=== PATIENT | female | born 1990 | race Hispanic/Latino ===

== ENCOUNTER 2019-07-20 00:43 | Inpatient (IN) ==
--- NOTE | 2019-07-20 00:25 | PROVIDER DOCUMENTATION ---
This chart was entered by Noreen Restrepo Scribe, acting as scribe for Miguel Nieto MD. HPI-Female /OB/Breast - General Stated Complaint: OB RELATED Time Seen by Provider: 07/20/19 00:12 Source: reports: RN/MD Unable to obtain history due to:: other (language barrier, prize coordinator not answering) - History of Present Illness-Female /OB Nature of Presenting Problem: 28 yohf c/o abd pain starting tonight. pt is 30+ weeks . unsure of care. prize coordinator contacted but no answer, unable to get hpi or ros aside from abd pain. Does patient report she is ?: Yes Location of complaint: reports: other (abd pain) Radiation: reports: none Severity in ED: reports: moderate Onset/Duration: reports: this evening Timing: reports: still present Context/Activities at Onset: reports: none Vaginal Symptoms: reports: no symptoms Vaginal Bleeding Amount: None Urinary Symptoms: reports: no symptoms Related Symptoms: reports: abdominal pain Leakage of Fluid: none Modifying Factors: improves with: nothing Associated Symptoms: reports: denies symptoms Review of Systems - Adult - REVIEW OF SYSTEMS - ADULT Constitutional: reports: no symptoms reported. denies: fever, fatique, night sweats Eyes: reports: no symptoms reported Ears, Nose, Mouth & Throat: reports: no symptoms reported Cardiovascular: reports: no symptoms reported Respiratory: reports: no symptoms reported Gastrointestinal: reports: see HPI, abdominal pain. denies: diarrhea, nausea, vomiting Genitourinary: reports: no symptoms reported Musculoskeletal: reports: no symptoms reported Integumentary: reports: no symptoms reported Neurological: reports: no symptoms reported Psychiatric: reports: no symptoms reported Endocrine: reports: no symptoms reported Hematologic/Lymphatic: reports: no symptoms reported Allergic/Immunologic: reports: no symptoms reported All Other Systems: Reviewed and Negative Past History - Adult - PAST MEDICAL HISTORY-ADULT Review of Records: reports: Nursing Assessment Review, Medications Reviewed, Social history reviewed & non-contributory. Major Childhood Illnesses: reports: denies history Cardiovascular: reports: denies history Respiratory: reports: denies history Gastrointestinal: reports: denies history Obstetrical/Gynecological: reports: denies history Genitourinary: reports: denies history Musculoskeletal: reports: denies history Neurological: reports: denies history Endocrine/Immune: reports: denies history Other Conditions: reports: denies history - IMMUNIZATION STATUS Childhood Immunizations: See Nurse Assessment Flu Vaccine: See Nurse Assessment - FAMILY HISTORY Family History: reviewed, not pertinent Physical Exam-General - PHYSICAL EXAM-ADULT Initial Vital Signs Reviewed: Yes - CONSTITUTIONAL General Appearance: alert, no apparent distress - EYES Eyes: PERRL/EOMI - HEAD, EARS, NOSE, MOUTH & THROAT HENMT: normocephalic/atraumatic, moist mucous membranes - NECK Neck: non-tender, full range of motion, supple, normal inspection - RESPIRATORY Respiratory: chest non-tender, lungs clear, normal breath sounds - CARDIOVASCULAR Cardiovascular: normal peripheral pulses, regular rate, rhythm - GASTROINTESTINAL (ABDOMEN) Abdominal Exam: normal bowel sounds, non tender, soft, no organomegaly, no pulsatile mass, tenderness. negative: guarding, rigid, rebound - MUSCULOSKELETAL Back Exam: normal inspection Extremity: normal range of motion, non-tender, normal inspection - SKIN Integumentary: normal color, normal turgor, warm/dry - NEUROLOGIC Neurologic: grossly normal, no motor/sensory deficits - PSYCHIATRIC Psych/Mental Status: normal mood/affect, normal thought content, normal thought process, oriented x 3 Progress - PLAN OF CARE/RESULTS Progress/Plan/Lab Results: Vital Signs - 8 hr 07/20/19 00:10 Temperature 97.9 F Pulse Rate 76 Respiratory Rate 20 Blood Pressure 138/79 O2 Sat by Pulse Oximetry 98 - XRAY 1 XRAY Study: Chest Impression: Normal - CONSULTS/PCP/HOSPITALIST Notification #1 *Consult/PCP/Hospitalist*: Kemar Time Discussed: 00:21 Consult Disposition: Admit Departure - Departure Date of Disposition Decision: 07/20/19 Time of Disposition Decision: 00:22 DIAGNOSIS: Active labor Qualifiers: Weeks of gestation: unspecified Qualified Code(s): Z34.90 - Encounter for supervision of normal , unspecified, unspecified trimester Disposition: ADMITTED INPATIENT 09 Certified Medical Emergency: Emergent Condition: Stable Referrals and Follow-Ups: None,PCP [Primary Care Provider] - - Critical Care Note This patient required my direct & personal management of CC.: No Attestation - Physician/ JERRELL Attestation Patient care was provided by Advanced Practice Provider:: No The physician spent face to face time with patient:: Yes Advanced Practice Provider documentation review:: Supervising physician onsite and consulted in the evaluation and care of this patient. The physician did have a face to face encounter with the patient. This chart was documented by the indicated scribe, (Noreen Restrepo Scribe) and accurately reflects the services I performed and decisions made by me, Miguel Nieto MD, as attested by the provider's signature.
[2019-07-20] MEDS ORDERED: REGLAN PO PRN (01:14)
[2019-07-20] MEDS ORDERED: AMPICILLIN 2 GM in NS 100 ML IV ONE (01:14)
[2019-07-20] MEDS ORDERED: TYLENOL PO PRN (01:14)
[2019-07-20] MEDS ORDERED: KEFZOL 2 GM/D5W 2 GM/50 ML IVPB IV PRN ×3 (01:14→11:00)
[2019-07-20] MEDS ORDERED: ZOFRAN IV PRN (01:14)
[2019-07-20] MEDS ORDERED: PEPCID IV PRN (01:14)
[2019-07-20] MEDS ORDERED: PEPCID PO PRN ×2 (01:14)
[2019-07-20] MEDS ORDERED: PITOCIN 30 UNITS/NS 30 UNIT/500 ML IV.SOLN IV SCH ×2 (01:15→12:00)
[2019-07-20] MEDS ORDERED: SODIUM CHLORIDE 0.9% INJ SCH (01:15)
[2019-07-20] MEDS: LR 1,000 ML IV SCH ×2 (01:30→10:13)
[2019-07-20 01:37] LABS: URINE SOURCE VOIDED
[2019-07-20] MEDS ORDERED: MINERAL OIL TOP PRN (01:37)
[2019-07-20] MEDS ORDERED: XYLOCAINE-MPF 1% INJ PRN ×2 (01:37→11:57)
[2019-07-20 01:46] LABS: BASO# 0.03 X1000 (0.0-0.2); BASO% 0.4 % (0.0-0.8); EOS# 0.07 X1000 (0.0-0.7); EOS% 0.9 % (0.0-10.0); HEMATOCRIT 42.4 % (37.0-47.0); HEMOGLOBIN 14.2 g/dL (12.0-16.0); IMM GRAN# 0.08 X1000 (0.0-0.04); IMM GRAN% 1.1 % (0.0-0.5); LYMPH# 1.76 X1000 (1.2-3.4); LYMPH% 23.3 % (20.5-51.1); MCH 30.7 PG (27-31); MCHC 33.5 g/dL (33-37); MCV 91.8 FL (81-99); MONO# 0.66 X1000 (0.11-0.59); MONO% 8.7 % (1.7-9.3); MPV 12.2 FL (7.4-10.4); NEUT# 4.95 X1000 (1.4-6.5); NEUT% 65.6 % (42.2-75.2); PLT 181 X1000 (130-400); RBC 4.62 XMIL (4.2-5.4); RDW 14.5 % (11.5-14.5); WBC 7.55 X1000 (4.8-10.8)
[2019-07-20 01:48] LABS: BILIRUBIN URINE NEGATIVE (NEGATIVE); BLOOD URINE SMALL (NEGATIVE); COLOR STRAW; GLUCOSE URINE NEGATIVE (NEGATIVE); KETONE URINE NEGATIVE (NEGATIVE); LEUKOCYTES URINE MODERATE (NEGATIVE); NITRITE URINE NEGATIVE (NEGATIVE); PROTEIN URINE NEGATIVE (NEGATIVE); SP GRAVITY URINE 1.006; TURBIDITY URINE CLEAR (CLEAR); UROBILINOGEN URINE NORMAL (NORMAL)
[2019-07-20 02:01] LABS: UR AMPHETAMINES QUAL NONE DETECTED (NONE DETECT); UR BARBITUATES QUAL NONE DETECTED (NONE DETECT); UR BENZODIAZEPIN QUAL NONE DETECTED (NONE DETECT); UR CANNABINOIDS QUAL NONE DETECTED (NONE DETECT); UR COCAINE QUAL NONE DETECTED (NONE DETECT); UR METHADONE QUAL NONE DETECTED (NONE DETECT); UR OPIATES QUAL NONE DETECTED (NONE DETECT); UR OXYCODONE QUAL NONE DETECTED (NONE DETECT); UR PCP QUAL NONE DETECTED (NONE DETECT)
[2019-07-20 02:03] LABS: RUBELLA SCREEN IMMUNE (IMMUNE)
[2019-07-20 02:30] LABS: RAPID HIV PRESUMPTIVE NEGATIVE
[2019-07-20] MEDS: STADOL IV PRN ×2 (04:47→07:10)
[2019-07-20] MEDS: AMPICILLIN 1 GM in NS 50 ML IV SCH ×2 (05:26→09:15)
--- NOTE | 2019-07-20 06:12 | HISTORY AND PHYSICAL ---
HISTORY OF PRESENT ILLNESS: The patient is a 28-year-old female, G4, P3, who had presented to [facility], [place] with uterine contractions. Was transferred to [facility], and upon initial evaluation she was 4 cm dilated, appeared to be near term with no rupture of membranes. No vaginal bleeding. The patient has not received care this . PAST MEDICAL HISTORY: Unremarkable. PAST SURGICAL HISTORY: None. PAST OBSTETRICAL HISTORY: G4, P3, spontaneous vaginal delivery x3. GYNECOLOGIC HISTORY: Menarche is unknown. REVIEW OF SYSTEMS: All systems reviewed and noncontributory. MEDICATIONS: vitamins. ALLERGIES: No known drug allergies. SOCIAL HISTORY: Tobacco use, none. Alcohol use, none. PHYSICAL EXAMINATION: VITAL SIGNS: Height 4 feet 9 inches, weight 163 pounds, temperature 97.9 degrees, blood pressure 138/79, pulse of 76, respirations 20. heart rate in the 130s with positive accelerations. HEENT: Pupils equal, round, reactive to light and accommodation. Extraocular movements intact. Oropharynx clear. NECK: Supple no thyromegaly. LUNGS: Clear to auscultation. HEART: Regular rate and rhythm. ABDOMEN: Gravid, nontender. PELVIC: Cervix was 5 cm dilated, 90% effaced, and -2 station. Intact membranes were noted, then ruptured and clear fluid was identified. EXTREMITIES: No clubbing, cyanosis, or edema noted. NEUROLOGIC: Cranial nerves 2-12 grossly intact. Motor 5 out of 5. INITIAL LABS: CBC: White count was 7.55, hemoglobin was 14.2, hematocrit 42.4, platelet count 181,000. Urinalysis was unremarkable. UDS was negative. HIV was presumptive negative. Rubella was immune. Blood type was noted to be O positive. ASSESSMENT AND PLAN: A 28-year-old female G4, P3 at near-term gestation, in active labor. The patient is receiving IV antibiotics due to unknown group B strep status. Anticipate a vaginal delivery. cc: Vu Reinoso III, MD
--- NOTE | 2019-07-20 07:10 | OB/GYN PROGRESS NOTE ---
- Subjective seems uncomfortable OB Physical Exam Vital Signs - 8 hr 07/20/19 00:10 07/20/19 01:12 Temperature 97.9 F 97.4 F L Pulse Rate 76 77 Respiratory Rate 20 20 Blood Pressure 138/79 133/63 O2 Sat by Pulse Oximetry 98 98 - CONSTITUTIONAL General Appearance: moderate distress - RESPIRATORY Respiratory: no respiratory distress - CARDIOVASCULAR Cardiovascular: regular rate, rhythm - CHEST (BREASTS) Chest/Breast: deferred - GENITOURINARY Vaginal Exam: 6.5 Cervica Dilation: 6.5 Cervical Effacement: 90 Station: -1 Heart Rate: 145 Active Medications Generic Name Dose Route Start Last Admin Trade Name Freq PRN Reason Stop Dose Admin Acetaminophen 650 mg 07/20/19 01:14 Tylenol PO Q4-6H PRN PRN Headache Butorphanol Tartrate 2 mg 07/20/19 01:14 07/20/19 04:47 Stadol IV 2 mg PRN PRN Administration Pain Famotidine 40 mg 07/20/19 01:14 Pepcid PO Q12H PRN PRN GI upset or indigestion Famotidine 20 mg 07/20/19 01:14 Pepcid IV Q12H PRN PRN GI upset or indigestion Famotidine 20 mg 07/20/19 01:14 Pepcid PO ONCE PRN PRN section Ampicillin Sodium 1 gm/ Sodium 50 mls @ 100 mls/hr 07/20/19 05:16 07/20/19 05:26 Chloride IV 100 mls/hr Q4H SHIRLEY Administration Cefazolin Sodium/Dextrose 2 gm in 50 mls @ 50 mls/hr 07/20/19 01:14 Kefzol 2 Gm/D5w IV ONCE PRN PRN section Lactated Ringer's 1,000 mls @ 0 mls/hr 07/20/19 01:15 07/20/19 01:30 Lr IV 125 mls/hr .Q0M SHIRLEY Administration As Directed Oxytocin/Sodium Chloride 30 unit in 500 mls @ 0 mls/hr 07/20/19 01:15 07/20/19 05:42 Pitocin 30 Units/Ns IV 2 mls/hr .Q0M SHIRLEY Administration As Directed Lidocaine HCl 30 ml 07/20/19 01:37 Xylocaine-Mpf 1% INJ PRN PRN At bedside for delivery Metoclopramide HCl 10 mg 07/20/19 01:14 Reglan PO ONCE PRN PRN section Mineral Oil 30 ml 07/20/19 01:37 Mineral Oil TOP PRN PRN At bedside for delivery Ondansetron HCl 4 mg 07/20/19 01:14 Zofran IV PRN PRN Nausea Sodium Chloride 5 - 10 ml 07/20/19 01:15 Sodium Chloride 0.9% INJ DIRECTED [facility] Laboratory Results - last 24 hr 07/20/19 07/20/19 07/20/19 00:49 00:49 01:05 WBC 7.55 RBC 4.62 Hgb 14.2 Hct 42.4 MCV 91.8 MCH 30.7 MCHC 33.5 RDW Std Deviation 14.5 Plt Count 181 MPV 12.2 H Immature Gran % (Auto) 1.1 H Neut % (Auto) 65.6 Lymph % (Auto) 23.3 [place] % (Auto) 8.7 Eos % (Auto) 0.9 Baso % (Auto) 0.4 Immature Gran # (Auto) 0.08 H Neut # (Auto) 4.95 Lymph # (Auto) 1.76 [place] # (Auto) 0.66 H Eos # (Auto) 0.07 Baso # (Auto) 0.03 Glucose Urine Source VOIDED Urine Color STRAW Urine Turbidity CLEAR Urine pH 7.0 Ur Specific [place] 1.006 Urine Protein NEGATIVE Ur Glucose (Stick) NEGATIVE Ur Ketones (Stick) NEGATIVE Urine Blood SMALL A Urine Nitrite NEGATIVE Urine Bilirubin NEGATIVE Urobilinogen Dipstick NORMAL Urine Leukocytes MODERATE A Urine Opiates Screen NONE DETECTED Ur Oxycodone Screen NONE DETECTED Ur Methadone, Qual NONE DETECTED Ur Barbiturates Screen NONE DETECTED Ur Phencyclidine Scrn NONE DETECTED Ur Amphetamines Screen NONE DETECTED U Benzodiazepines Scrn NONE DETECTED Urine Cocaine Screen NONE DETECTED U Cannabinoids Screen NONE DETECTED HIV 1&2 Antibody Rapid Rubella Immunity Screen Blood Type Blood Type Confirm Antibody Screen 07/20/19 07/20/19 07/20/19 01:05 01:05 01:05 WBC RBC Hgb Hct MCV MCH MCHC RDW Std Deviation Plt Count MPV Immature Gran % (Auto) Neut % (Auto) Lymph % (Auto) [place] % (Auto) Eos % (Auto) Baso % (Auto) Immature Gran # (Auto) Neut # (Auto) Lymph # (Auto) [place] # (Auto) Eos # (Auto) Baso # (Auto) Glucose 76 Urine Source Urine Color Urine Turbidity Urine pH Ur Specific [place] Urine Protein Ur Glucose (Stick) Ur Ketones (Stick) Urine Blood Urine Nitrite Urine Bilirubin Urobilinogen Dipstick Urine Leukocytes Urine Opiates Screen Ur Oxycodone Screen Ur Methadone, Qual Ur Barbiturates Screen Ur Phencyclidine Scrn Ur Amphetamines Screen U Benzodiazepines Scrn Urine Cocaine Screen U Cannabinoids Screen HIV 1&2 Antibody Rapid PRESUMPTIVE NEGATIVE Rubella Immunity Screen IMMUNE Blood Type O POSITIVE Blood Type Confirm Antibody Screen NEGATIVE 07/20/19 04:03 WBC RBC Hgb Hct MCV MCH MCHC RDW Std Deviation Plt Count MPV Immature Gran % (Auto) Neut % (Auto) Lymph % (Auto) [place] % (Auto) Eos % (Auto) Baso % (Auto) Immature Gran # (Auto) Neut # (Auto) Lymph # (Auto) [place] # (Auto) Eos # (Auto) Baso # (Auto) Glucose Urine Source Urine Color Urine Turbidity Urine pH Ur Specific [place] Urine Protein Ur Glucose (Stick) Ur Ketones (Stick) Urine Blood Urine Nitrite Urine Bilirubin Urobilinogen Dipstick Urine Leukocytes Urine Opiates Screen Ur Oxycodone Screen Ur Methadone, Qual Ur Barbiturates Screen Ur Phencyclidine Scrn Ur Amphetamines Screen U Benzodiazepines Scrn Urine Cocaine Screen U Cannabinoids Screen HIV 1&2 Antibody Rapid Rubella Immunity Screen Blood Type Blood Type Confirm O POSITIVE Antibody Screen OB Assessment & Plan (1) Active labor at term Status: Acute Plan: IUPC placed, continue to follow closely
--- NOTE | 2019-07-20 09:07 | PROVIDER PROGRESS NOTE ---
- Subjective uncomfortable, contractions adequate, tracing category 1 Physical Exam Objective Vital Signs - 8 hr 07/20/19 01:12 07/20/19 07:00 Temperature 97.4 F L 98.6 F Pulse Rate 77 69 Respiratory Rate 20 20 Blood Pressure 133/63 125/59 O2 Sat by Pulse Oximetry 98 94 L - Constitutional General Appearance: moderate distress - RESPIRATORY Respiratory: no respiratory distress - CARDIOVASCULAR Cardiovascular: regular rate, rhythm Active Medications Generic Name Dose Route Start Last Admin Trade Name Freq PRN Reason Stop Dose Admin Acetaminophen 650 mg 07/20/19 01:14 Tylenol PO Q4-6H PRN PRN Headache Butorphanol Tartrate 2 mg 07/20/19 01:14 07/20/19 07:10 Stadol IV 2 mg PRN PRN Administration Pain Famotidine 40 mg 07/20/19 01:14 Pepcid PO Q12H PRN PRN GI upset or indigestion Famotidine 20 mg 07/20/19 01:14 Pepcid IV Q12H PRN PRN GI upset or indigestion Famotidine 20 mg 07/20/19 01:14 Pepcid PO ONCE PRN PRN section Ampicillin Sodium 1 gm/ Sodium 50 mls @ 100 mls/hr 07/20/19 05:16 07/20/19 05:26 Chloride IV 100 mls/hr Q4H SHIRLEY Administration Cefazolin Sodium/Dextrose 2 gm in 50 mls @ 50 mls/hr 07/20/19 01:14 Kefzol 2 Gm/D5w IV ONCE PRN PRN section Lactated Ringer's 1,000 mls @ 0 mls/hr 07/20/19 01:15 07/20/19 01:30 Lr IV 125 mls/hr .Q0M SHIRLEY Administration As Directed Oxytocin/Sodium Chloride 30 unit in 500 mls @ 0 mls/hr 07/20/19 01:15 07/20/19 05:42 Pitocin 30 Units/Ns IV 2 mls/hr .Q0M SHIRLEY Administration As Directed Lidocaine HCl 30 ml 07/20/19 01:37 Xylocaine-Mpf 1% INJ PRN PRN At bedside for delivery Metoclopramide HCl 10 mg 07/20/19 01:14 Reglan PO ONCE PRN PRN section Mineral Oil 30 ml 07/20/19 01:37 Mineral Oil TOP PRN PRN At bedside for delivery Ondansetron HCl 4 mg 07/20/19 01:14 Zofran IV PRN PRN Nausea Sodium Chloride 5 - 10 ml 07/20/19 01:15 Sodium Chloride 0.9% INJ DIRECTED SHIRLEY Laboratory Results - last 24 hr 07/20/19 07/20/19 07/20/19 00:49 00:49 01:05 WBC 7.55 RBC 4.62 Hgb 14.2 Hct 42.4 MCV 91.8 MCH 30.7 MCHC 33.5 RDW Std Deviation 14.5 Plt Count 181 MPV 12.2 H Immature Gran % (Auto) 1.1 H Neut % (Auto) 65.6 Lymph % (Auto) 23.3 [place] % (Auto) 8.7 Eos % (Auto) 0.9 Baso % (Auto) 0.4 Immature Gran # (Auto) 0.08 H Neut # (Auto) 4.95 Lymph # (Auto) 1.76 [place] # (Auto) 0.66 H Eos # (Auto) 0.07 Baso # (Auto) 0.03 Glucose Urine Source VOIDED Urine Color STRAW Urine Turbidity CLEAR Urine pH 7.0 Ur Specific [place] 1.006 Urine Protein NEGATIVE Ur Glucose (Stick) NEGATIVE Ur Ketones (Stick) NEGATIVE Urine Blood SMALL A Urine Nitrite NEGATIVE Urine Bilirubin NEGATIVE Urobilinogen Dipstick NORMAL Urine Leukocytes MODERATE A Urine Opiates Screen NONE DETECTED Ur Oxycodone Screen NONE DETECTED Ur Methadone, Qual NONE DETECTED Ur Barbiturates Screen NONE DETECTED Ur Phencyclidine Scrn NONE DETECTED Ur Amphetamines Screen NONE DETECTED U Benzodiazepines Scrn NONE DETECTED Urine Cocaine Screen NONE DETECTED U Cannabinoids Screen NONE DETECTED HIV 1&2 Antibody Rapid Rubella Immunity Screen Blood Type Blood Type Confirm Antibody Screen 07/20/19 07/20/19 07/20/19 01:05 01:05 01:05 WBC RBC Hgb Hct MCV MCH MCHC RDW Std Deviation Plt Count MPV Immature Gran % (Auto) Neut % (Auto) Lymph % (Auto) [place] % (Auto) Eos % (Auto) Baso % (Auto) Immature Gran # (Auto) Neut # (Auto) Lymph # (Auto) [place] # (Auto) Eos # (Auto) Baso # (Auto) Glucose 76 Urine Source Urine Color Urine Turbidity Urine pH Ur Specific [place] Urine Protein Ur Glucose (Stick) Ur Ketones (Stick) Urine Blood Urine Nitrite Urine Bilirubin Urobilinogen Dipstick Urine Leukocytes Urine Opiates Screen Ur Oxycodone Screen Ur Methadone, Qual Ur Barbiturates Screen Ur Phencyclidine Scrn Ur Amphetamines Screen U Benzodiazepines Scrn Urine Cocaine Screen U Cannabinoids Screen HIV 1&2 Antibody Rapid PRESUMPTIVE NEGATIVE Rubella Immunity Screen IMMUNE Blood Type O POSITIVE Blood Type Confirm Antibody Screen NEGATIVE 07/20/19 04:03 WBC RBC Hgb Hct MCV MCH MCHC RDW Std Deviation Plt Count MPV Immature Gran % (Auto) Neut % (Auto) Lymph % (Auto) [place] % (Auto) Eos % (Auto) Baso % (Auto) Immature Gran # (Auto) Neut # (Auto) Lymph # (Auto) [place] # (Auto) Eos # (Auto) Baso # (Auto) Glucose Urine Source Urine Color Urine Turbidity Urine pH Ur Specific [place] Urine Protein Ur Glucose (Stick) Ur Ketones (Stick) Urine Blood Urine Nitrite Urine Bilirubin Urobilinogen Dipstick Urine Leukocytes Urine Opiates Screen Ur Oxycodone Screen Ur Methadone, Qual Ur Barbiturates Screen Ur Phencyclidine Scrn Ur Amphetamines Screen U Benzodiazepines Scrn Urine Cocaine Screen U Cannabinoids Screen HIV 1&2 Antibody Rapid Rubella Immunity Screen Blood Type Blood Type Confirm O POSITIVE Antibody Screen - Assessment & Plan (1) Active labor at term Status: Acute - Progress Note Disposition: Patient with no change in exam, note swelling of perineum and cervix, also note infant is persistent op Will recheck in 2 hours if no change will proceed with primary cs, spouse and patient aware of plan
[2019-07-20] MEDS ORDERED: STADOL IV PRN (09:28)
[2019-07-20] MEDS ORDERED: DULCOLAX PR PRN (09:46)
[2019-07-20] MEDS ORDERED: HYDROXYZINE IM PRN ×2 (09:46→11:57)
[2019-07-20] MEDS ORDERED: AMBIEN PO PRN ×2 (09:46→11:57)
[2019-07-20] MEDS ORDERED: BOOSTRIX VACCINE IM ONE (09:46)
[2019-07-20] MEDS ORDERED: M-M-R II VACCINE SUBQ ONE (09:46)
[2019-07-20] MEDS ORDERED: ATARAX PO PRN ×2 (09:46→11:57)
[2019-07-20] MEDS ORDERED: DEMEROL PO PRN ×2 (09:46)
[2019-07-20] MEDS ORDERED: PHENERGAN IM PRN (09:46)
[2019-07-20] MEDS ORDERED: PITOCIN IM PRN ×2 (09:46→11:57)
[2019-07-20] MEDS ORDERED: PERCOCET-10 PO PRN (09:46)
[2019-07-20] MEDS ORDERED: MYLICON PO PRN (09:46)
[2019-07-20] MEDS ORDERED: PITOCIN 20 UNITS/NS 20 UNITS/1,000 ML IV.SOLN IV ONE (09:46)
[2019-07-20] MEDS ORDERED: DEMEROL IM PRN (09:46)
--- NOTE | 2019-07-20 09:46 | H&P REVIEW ---
H&P Update H&P Review: H&P was reviewed and patient was examined, No change has occurred in the patient's condition
[2019-07-20 10:04] LABS: HIV ANTIBODY SCREEN SEE COMMENTS
--- NOTE | 2019-07-20 11:14 | PROVIDER PROGRESS NOTE ---
- Subjective moderate discomfort Physical Exam Objective Vital Signs - 8 hr 07/20/19 07:00 07/20/19 11:00 Temperature 98.6 F 98.1 F Pulse Rate 69 70 Respiratory Rate 20 20 Blood Pressure 125/59 114/55 O2 Sat by Pulse Oximetry 94 L 96 - Constitutional General Appearance: moderate distress - HEAD, EARS, NOSE, MOUTH & THROAT HENMT: normocephalic/atraumatic (pelvic 8 cm/90 /plus 1) Active Medications Generic Name Dose Route Start Last Admin Trade Name Freq PRN Reason Stop Dose Admin Acetaminophen 650 mg 07/20/19 01:14 Tylenol PO Q4-6H PRN PRN Headache Bisacodyl 10 mg 07/20/19 09:46 Dulcolax IN PRN PRN gas unrelieved by Mylicon Butorphanol Tartrate 2 mg 07/20/19 01:14 07/20/19 07:10 Stadol IV 2 mg PRN PRN Administration Pain Butorphanol Tartrate 2 mg 07/20/19 09:28 Stadol IV Q2H PRN PRN Pain Famotidine 40 mg 07/20/19 01:14 Pepcid PO Q12H PRN PRN GI upset or indigestion Famotidine 20 mg 07/20/19 01:14 Pepcid IV Q12H PRN PRN GI upset or indigestion Famotidine 20 mg 07/20/19 01:14 Pepcid PO ONCE PRN PRN section Hydroxyzine HCl 50 mg 07/20/19 09:46 Atarax PO Q3-4H PRN PRN Nausea Hydroxyzine HCl 50 mg 07/20/19 09:46 Hydroxyzine IM Q3-4H PRN PRN Nausea Ampicillin Sodium 1 gm/ Sodium 50 mls @ 100 mls/hr 07/20/19 05:16 07/20/19 09:15 Chloride IV 100 mls/hr Q4H SHIRLEY Administration Lactated Ringer's 1,000 mls @ 0 mls/hr 07/20/19 01:15 07/20/19 10:13 Lr IV 125 mls/hr .Q0M SHIRLEY Administration As Directed Oxytocin/Sodium Chloride 30 unit in 500 mls @ 0 mls/hr 07/20/19 01:15 07/20/19 05:42 Pitocin 30 Units/Ns IV 2 mls/hr .Q0M SHIRLEY Administration As Directed Lactated Ringer's 1,000 mls @ 125 mls/hr 07/21/19 09:47 Lr IV .Q8H SHIRLEY Oxytocin/Sodium Chloride 20 units in 1,000 mls @ 125 mls/hr 07/20/19 09:46 Pitocin 20 Units/Ns IV 07/20/19 17:45 .Q8H ONE Cefazolin Sodium/Dextrose 2 gm in 50 mls @ 50 mls/hr 07/20/19 11:00 Kefzol 2 Gm/D5w IV 07/21/19 11:00 ONCE PRN PRN section Cefazolin Sodium/Dextrose 2 gm in 50 mls @ 50 mls/hr 07/20/19 10:25 Kefzol 2 Gm/D5w IV DIRECTED PRN PRN pre-op Ibuprofen 800 mg 07/20/19 09:46 Motrin PO Q8H PRN PRN Pain Lidocaine HCl 30 ml 07/20/19 01:37 Xylocaine-Mpf 1% INJ PRN PRN At bedside for delivery Meperidine HCl 50 mg 07/20/19 09:46 Demerol IM Q3H PRN PRN Pain Meperidine HCl 100 mg 07/20/19 09:46 Demerol PO Q4H PRN PRN Pain (7-10 on Pain Scale) Meperidine HCl 50 mg 07/20/19 09:46 Demerol PO Q4H PRN PRN Pain (1-6 on Pain Scale) Metoclopramide HCl 10 mg 07/20/19 01:14 Reglan PO ONCE PRN PRN section Mineral Oil 30 ml 07/20/19 01:37 Mineral Oil TOP PRN PRN At bedside for delivery Ondansetron HCl 4 mg 07/20/19 01:14 Zofran IV PRN PRN Nausea Oxycodone/Acetaminophen 1 each 07/20/19 09:46 Percocet-10 PO Q3-4H PRN PRN Pain (7-10 on Pain Scale) Oxycodone/Acetaminophen 1 each 07/20/19 09:46 Percocet-5 PO Q3-4H PRN PRN Pain (1-6 on Pain Scale) Oxytocin 20 unit 07/20/19 09:46 Pitocin IM PRN PRN Severe bleeding Promethazine HCl 25 mg 07/20/19 09:46 Phenergan IM Q3H PRN PRN Pain Senna/Docusate Sodium 1 each 07/20/19 21:00 Pericolace PO QHS SHIRLEY Simethicone 80 mg 07/20/19 13:00 Mylicon PO PC + HS SHIRLEY Simethicone 80 mg 07/20/19 09:46 Mylicon PO PRN PRN GAS Sodium Chloride 5 - 10 ml 07/20/19 01:15 Sodium Chloride 0.9% INJ DIRECTED SHIRLEY Zolpidem Tartrate 10 mg 07/20/19 09:46 Ambien PO HS PRN PRN Sleep Laboratory Results - last 24 hr 07/20/19 07/20/19 07/20/19 00:49 00:49 01:05 WBC 7.55 RBC 4.62 Hgb 14.2 Hct 42.4 MCV 91.8 MCH 30.7 MCHC 33.5 RDW Std Deviation 14.5 Plt Count 181 MPV 12.2 H Immature Gran % (Auto) 1.1 H Neut % (Auto) 65.6 Lymph % (Auto) 23.3 [place] % (Auto) 8.7 Eos % (Auto) 0.9 Baso % (Auto) 0.4 Immature Gran # (Auto) 0.08 H Neut # (Auto) 4.95 Lymph # (Auto) 1.76 [place] # (Auto) 0.66 H Eos # (Auto) 0.07 Baso # (Auto) 0.03 Glucose Urine Source VOIDED Urine Color STRAW Urine Turbidity CLEAR Urine pH 7.0 Ur Specific [place] 1.006 Urine Protein NEGATIVE Ur Glucose (Stick) NEGATIVE Ur Ketones (Stick) NEGATIVE Urine Blood SMALL A Urine Nitrite NEGATIVE Urine Bilirubin NEGATIVE Urobilinogen Dipstick NORMAL Urine Leukocytes MODERATE A Urine Opiates Screen NONE DETECTED Ur Oxycodone Screen NONE DETECTED Ur Methadone, Qual NONE DETECTED Ur Barbiturates Screen NONE DETECTED Ur Phencyclidine Scrn NONE DETECTED Ur Amphetamines Screen NONE DETECTED U Benzodiazepines Scrn NONE DETECTED Urine Cocaine Screen NONE DETECTED U Cannabinoids Screen NONE DETECTED HIV 1&2 Antibody Screen HIV 1&2 Antibody Rapid Rubella Immunity Screen Blood Type Blood Type Confirm Antibody Screen 07/20/19 07/20/19 07/20/19 01:05 01:05 01:05 WBC RBC Hgb Hct MCV MCH MCHC RDW Std Deviation Plt Count MPV Immature Gran % (Auto) Neut % (Auto) Lymph % (Auto) [place] % (Auto) Eos % (Auto) Baso % (Auto) Immature Gran # (Auto) Neut # (Auto) Lymph # (Auto) [place] # (Auto) Eos # (Auto) Baso # (Auto) Glucose 76 Urine Source Urine Color Urine Turbidity Urine pH Ur Specific [place] Urine Protein Ur Glucose (Stick) Ur Ketones (Stick) Urine Blood Urine Nitrite Urine Bilirubin Urobilinogen Dipstick Urine Leukocytes Urine Opiates Screen Ur Oxycodone Screen Ur Methadone, Qual Ur Barbiturates Screen Ur Phencyclidine Scrn Ur Amphetamines Screen U Benzodiazepines Scrn Urine Cocaine Screen U Cannabinoids Screen HIV 1&2 Antibody Screen HIV 1&2 Antibody Rapid PRESUMPTIVE NEGATIVE Rubella Immunity Screen IMMUNE Blood Type O POSITIVE Blood Type Confirm Antibody Screen NEGATIVE 07/20/19 07/20/19 02:30 04:03 WBC RBC Hgb Hct MCV MCH MCHC RDW Std Deviation Plt Count MPV Immature Gran % (Auto) Neut % (Auto) Lymph % (Auto) [place] % (Auto) Eos % (Auto) Baso % (Auto) Immature Gran # (Auto) Neut # (Auto) Lymph # (Auto) [place] # (Auto) Eos # (Auto) Baso # (Auto) Glucose Urine Source Urine Color Urine Turbidity Urine pH Ur Specific [place] Urine Protein Ur Glucose (Stick) Ur Ketones (Stick) Urine Blood Urine Nitrite Urine Bilirubin Urobilinogen Dipstick Urine Leukocytes Urine Opiates Screen Ur Oxycodone Screen Ur Methadone, Qual Ur Barbiturates Screen Ur Phencyclidine Scrn Ur Amphetamines Screen U Benzodiazepines Scrn Urine Cocaine Screen U Cannabinoids Screen HIV 1&2 Antibody Screen SEE COMMENTS HIV 1&2 Antibody Rapid Rubella Immunity Screen Blood Type Blood Type Confirm O POSITIVE Antibody Screen - Assessment & Plan (1) Active labor at term Status: Acute Plan: progress noted - Progress Note Disposition: continue to follow recheck in one hour
[2019-07-20] MEDS ORDERED: CYTOTEC PO PRN (11:57)
[2019-07-20] MEDS ORDERED: MINERAL OIL PO PRN (11:57)
[2019-07-20] MEDS ORDERED: PERI MEDS (DERMOPLAST/NUPERCAINAL/TUCKS) MISC PRN (11:57)
[2019-07-20] MEDS ORDERED: BENADRYL IV PRN (11:57)
[2019-07-20] MEDS ORDERED: BENADRYL PO PRN (11:57)
[2019-07-20] MEDS ORDERED: MOTRIN PO PRN (11:57)
[2019-07-20] MEDS: PERCOCET-5 PO PRN (12:44)
[2019-07-20] MEDS: MOTRIN PO PRN ×2 (12:45→21:20)
[2019-07-20] MEDS ORDERED: MYLICON PO SCH (13:00)
--- NOTE | 2019-07-20 13:05 | OPERATIVE NOTE ---
PROCEDURE DATE : 07/20/2019 PROCEDURE PERFORMED: Vaginal delivery. DELIVERY DATE AND TIME: 07/20/2019 at 11:43 FINDINGS: The amniotic fluid was clear. The number was 1, viable female, delivered by spontaneous vaginal delivery over intact perineum. The weight 8 pounds 12 ounces. Apgars are 8 and 9. complications: None. The placenta was expressed intact with 3 vessel cord. ANESTHESIA: None. EPISIOTOMY: None. LACERATION: None. REPAIR: None. ESTIMATED BLOOD LOSS: Approximately 250 mL. MATERNAL COMPLICATIONS: None. cc: Vu Reinoso III, MD MTDD
[2019-07-20 13:49] LABS: HEPATITIS B SURFACE ANTIGEN SEE COMMENTS
[2019-07-20] MEDS ORDERED: PERICOLACE PO SCH (21:00)
[2019-07-20] MEDS: PERICOLACE PO SCH (21:20)
[2019-07-21 05:28] LABS: HEMATOCRIT 34.3 % (37.0-47.0); HEMOGLOBIN 11.4 g/dL (12.0-16.0); MCH 31.5 PG (27-31); MCHC 33.2 g/dL (33-37); MCV 94.8 FL (81-99); MPV 12.1 FL (7.4-10.4); RBC 3.62 XMIL (4.2-5.4); WBC 11.24 X1000 (4.8-10.8)
--- NOTE | 2019-07-21 05:29 | OB/GYN PROGRESS NOTE ---
- Subjective no complaints, uneventful evening, will take watkins out this morning, had excessive vulvar swelling OB Physical Exam Vital Signs - 8 hr 07/20/19 23:33 07/21/19 04:10 Temperature 97.3 F L 97.3 F L Pulse Rate 69 67 Respiratory Rate 18 18 Blood Pressure 95/50 89/49 O2 Sat by Pulse Oximetry 95 95 - CONSTITUTIONAL General Appearance: appears well, alert, no apparent distress - EYES Eyes: PERRL/EOMI - HEAD, EARS, NOSE, MOUTH & THROAT HENMT: normocephalic/atraumatic - RESPIRATORY Respiratory: no respiratory distress - CARDIOVASCULAR Cardiovascular: regular rate, rhythm - GASTROINTESTINAL (ABDOMEN) Abdominal Exam: non tender - GENITOURINARY Female Genitalia/Pelvic Exam: deferred - MUSCULOSKELETAL Extremity: normal range of motion - SKIN Integumentary: normal color - NEUROLOGIC Neurologic: grossly normal - PSYCHIATRIC Psych/Mental Status: normal mood/affect, oriented x 3 Active Medications Generic Name Dose Route Start Last Admin Trade Name Freq PRN Reason Stop Dose Admin Acetaminophen 650 mg 07/20/19 01:14 Tylenol PO Q4-6H PRN PRN Headache Benzocaine 1 each 07/20/19 11:57 07/20/19 18:31 Corinne Meds (Dermoplast/Nupercainal/Tucks) MISC 1 applic 3-4XDAY PRN PRN Administration episiotomy/hemorrhoids Bisacodyl 10 mg 07/20/19 09:46 Dulcolax MD PRN PRN gas unrelieved by Mylicon Diphenhydramine HCl 25 mg 07/20/19 11:57 Benadryl PO Q4H PRN PRN Itching Famotidine 40 mg 07/20/19 01:14 Pepcid PO Q12H PRN PRN GI upset or indigestion Hydroxyzine HCl 50 mg 07/20/19 11:57 Atarax PO Q3-4H PRN PRN Nausea Hydroxyzine HCl 50 mg 07/20/19 11:57 Hydroxyzine IM Q3-4H PRN PRN Nausea Lactated Ringer's 1,000 mls @ 0 mls/hr 07/20/19 01:15 07/20/19 10:13 Lr IV 125 mls/hr .Q0M SHIRLEY Administration As Directed Lactated Ringer's 1,000 mls @ 125 mls/hr 07/21/19 09:47 Lr IV .Q8H SHIRLEY Ibuprofen 800 mg 07/20/19 09:46 07/20/19 21:20 Motrin PO 800 mg Q8H PRN PRN Administration Pain Lidocaine HCl 30 ml 07/20/19 11:57 Xylocaine-Mpf 1% INJ PRN PRN Perineal repair Meperidine HCl 50 mg 07/20/19 09:46 Demerol IM Q3H PRN PRN Pain Meperidine HCl 100 mg 07/20/19 09:46 Demerol PO Q4H PRN PRN Pain (7-10 on Pain Scale) Meperidine HCl 50 mg 07/20/19 09:46 Demerol PO Q4H PRN PRN Pain (1-6 on Pain Scale) Misoprostol 800 microgm 07/20/19 11:57 Cytotec PO PRN PRN Severe bleeding Ondansetron HCl 4 mg 07/20/19 01:14 Zofran IV PRN PRN Nausea Oxycodone/Acetaminophen 1 each 07/20/19 09:46 Percocet-10 PO Q3-4H PRN PRN Pain (7-10 on Pain Scale) Oxycodone/Acetaminophen 1 each 07/20/19 09:46 07/20/19 12:44 Percocet-5 PO 1 each Q3-4H PRN PRN Administration Pain (1-6 on Pain Scale) Promethazine HCl 25 mg 07/20/19 09:46 Phenergan IM Q3H PRN PRN Pain Senna/Docusate Sodium 1 each 07/20/19 21:00 07/20/19 21:20 Pericolace PO 1 each QHS SHIRLEY Administration Sodium Chloride 5 - 10 ml 07/20/19 01:15 Sodium Chloride 0.9% INJ DIRECTED SHIRLEY Zolpidem Tartrate 10 mg 07/20/19 09:46 Ambien PO HS PRN PRN Sleep Laboratory Results - last 24 hr 07/20/19 07/20/19 07/20/19 01:05 02:30 04:03 Hep Bs Antigen SEE COMMENTS HIV 1&2 Antibody Screen SEE COMMENTS Blood Type Confirm O POSITIVE OB Assessment & Plan (1) Active labor at term Status: Resolved Plan: resolved (2) Normal course Status: Acute Plan: routine care,
[2019-07-21] MEDS ORDERED: HEMABATE IM ONE (07:13)
[2019-07-21] MEDS ORDERED: METHERGINE IV ONE (07:13)
[2019-07-21] MEDS ORDERED: CYKLOKAPRON 1,000 MG in NS 100 ML IV ONE (07:13)
[2019-07-21] MEDS: MOTRIN PO PRN ×2 (08:25→18:20)
[2019-07-21] MEDS ORDERED: BOOSTRIX VACCINE IM ONE (12:45)
[2019-07-21] MEDS ORDERED: FLU VACCINE IM ONE (12:45)
[2019-07-21] MEDS: LR 1,000 ML IV SCH ×2 (15:59→20:46)
[2019-07-21] MEDS: PERICOLACE PO SCH (21:34)
[2019-07-22] MEDS: PERCOCET-5 PO PRN (00:10)
[2019-07-22 07:49] VITALS: BP 105/55
== END 2019-07-22 10:10 | disposition home or self-care (01) | DRG 807 ==
LOC: OPLD 00:43 → EDSTATUS 00:43 → LD 00:46
PROVIDERS: ADMIT Obstetrics & Gynecology; ATTEND Obstetrics & Gynecology